=== PATIENT | female | born 1970 | race Caucasian/White ===

== ENCOUNTER 2021-09-07 20:25 | Emergency (ER) | payer OTHER ==
[~2021-09-07] VITALS: Ht 165.1 cm; Wt 85.3 kg
[~2021-09-07 20:25] MED LIST: CEPH-568 PO; NORCO5 PO
[2021-09-07 20:28] VITALS: BP_SYST 133
--- NOTE | 2021-09-07 20:38 | NUR ---
PT LYING IN BED, AOX4. REPORTS RAPID HEART RATE ON AND OFF X1 WEEK WITH INTERMITTENT CHEST PAIN. PT STATES THAT SHE WAS FEARFUL OF WHAT WAS HAPPENING AND DECIDED TO COME TO THE ED. PT REPORTS HX HIGH CHOLESTEROL, DENIES ANY OTHER HX OR HOME MEDICATIONS. HR 150-160 PER ED MONITOR.
--- NOTE | 2021-09-07 20:38 | NUR ---
Placed in room 01 . Placed on adult literacy instructor, blood pressure machine and pulse oximeter. To gown for exam. Side rails up.
--- NOTE | 2021-09-07 20:39 | NUR ---
DR. SMALL AT BEDSIDE FOR EVALUATION
[2021-09-07] MEDS ORDERED: ADENOSINE 6MG/2ML VIAL ONE (20:44)
[2021-09-07] MEDS ORDERED: NACL 0.9% 1,000 ML IV ONE ×2 (20:45→23:00)
[2021-09-07] MEDS ORDERED: ADENOSINE 6MG/2ML VIAL IVP ONE (20:45)
--- NOTE | 2021-09-07 20:45 | NUR ---
VERBAL ORDERS PER MD GEOVANNY TO APPLY 2L O2 BY NC. VERBAL ORDERS 1 L NS BOLUS PER MD GEOVANNY.
[2021-09-07] MEDS ORDERED: METOPROLOL TARTRATE 25 MG TABLET PO ONE ×2 (21:00→21:15)
[2021-09-07] MEDS ORDERED: ASPIRIN 325 MG TABLET PO ONE (21:00)
[2021-09-07 21:12] LABS: BASOPHILS # (AUTO) 0.2 K/uL (0.0-0.2); BASOPHILS % (AUTO) 1.2 % (0.0-2.0); EOSINOPHILS # (AUTO) 0.3 K/uL (0.0-0.4); EOSINOPHILS % (AUTO) 2.1 % (0.0-4.0); HEMATOCRIT 45.4 % (36-48); LYMPHOCYTES # (AUTO) 3.4 K/uL (1.0-5.5); LYMPHOCYTES % (AUTO) 24.4 % (20.5-51.5); MEAN CORPUSCULAR HEMOGLOBIN 28 pg (27-31); MEAN CORPUSCULAR HGB CONC 33 % (32-36); MEAN CORPUSCULAR VOLUME 86 fL (79.0-98.0); MONOCYTES # (AUTO) 0.9 K/uL (0.0-1.0); MONOCYTES % (AUTO) 6.2 % (1.7-9.3); NEUTROPHILS # (AUTO) 9.2 K/uL (1.8-7.7); NEUTROPHILS % (AUTO) 66.1 % (40.0-70.0); PLATELET COUNT (AUTO) 439 K/uL (130-430); RED BLOOD CELL COUNT(AUTO) 5.29 MIL/uL (4.2-6.2); RED CELL DISTRIBUTION WIDTH 14.1 % (9.0-15.0); WHITE BLOOD COUNT (AUTO) 13.9 K/uL (4.8-10.8)
[2021-09-07 21:28] LABS: CALCIUM 9.5 mg/dL (8.4-11.0); CREATININE 0.89 mg/dL (0.55-1.30); POTASSIUM 3.3 mmol/L (3.5-5.1)
--- NOTE | 2021-09-07 21:43 | NUR ---
RN VERIFIED LOPRESSOR ORDERS WITH . MD GAVE VERBAL ORDERS TO ONLY GIVE 25MG LOPRESSOR.
[2021-09-07 21:44] LABS: THYROID STIMULATING HORMONE 3.84 uIu/mL (0.36-3.74); TOTAL BILIRUBIN 0.2 mg/dL (0.0-1.0)
[2021-09-07 22:19] LABS: INR 0.9 (0.8-1.2); PROTHROMBIN TIME 9.5 SECS (9.5-12.5)
--- NOTE | 2021-09-07 22:24 | NUR ---
RN UPDATED PT AND FAMILY MEMBER ON PLAN OF CARE.
[2021-09-07 23:07] LABS: FREE T4 (FREE THYROXINE) 1.2 ng/dl (0.8-1.5)
--- NOTE | 2021-09-07 23:10 | NUR ---
URINE SPECIMEN SENT TO LAB BY RN.
[2021-09-07 23:13] LABS: CKMB RELATIVE INDEX 0.1 (0.0-2.9); CREATINE KINASE MB 15.5 ng/mL (0-3.6)
[2021-09-08 00:07] LABS: BILIRUBIN,URINE NEGATIVE (NEGATIVE); BLOOD, URINE 2+ (NEGATIVE); CLARITY/URINE CLEAR (CLEAR); COLOR,URINE YELLOW (YELLOW); GLUCOSE,URINE NEGATIVE (NEGATIVE); KETONES,URINE NEGATIVE (NEGATIVE); LEUKOCYTE ESTERASE ,URINE NEGATIVE (NEGATIVE); NITRITE, URINE NEGATIVE (NEGATIVE); PROTEIN URINE NEGATIVE (NEGATIVE); UROBILINOGEN,URINE 0.2 (0.2-1.0)
[2021-09-08 00:34] LABS: BACTERIA,URINE FEW /HPF (None Seen); WBC,URINE 0-3 /HPF (0-3)
--- NOTE | 2021-09-08 01:19 | NUR ---
Patient to be transferred to [facility]. Is being transferred due to higher level of care. Receiving facility has accepting physician and available space. ER physician has signed transfer form. Patient or responsible libertarian has agreed to transfer and signed form. Patient belongings inventoried and will be sent with patient. Copy of nursing notes, lab reports, EKG, Physicians Orders and X-rays to be sent with patient. Report called to YESICA BANKS at receiving facility. Receiving physician is MD BELKIS. [facility] service has been called for transfer. ETA is [id number].
[2021-09-08 01:22] VITALS: BP_SYST 123
== END 2021-09-08 01:19 | disposition short-term general hospital (02) ==
LOC: SED 20:25
DX: I47.1 Supraventricular tachycardia (principal); R07.89 Other chest pain; R74.01 Elevation of levels of liver transaminase levels; M62.82 Rhabdomyolysis; Z79.899 Other long term (current) drug therapy; Z20.822 Contact with and (suspected) exposure to COVID-19
CPT/HCPCS: 36415; 71045; 80053; 81000; 82550; 82553; 83880; 84439; 84443; 84479; 84484; 85025; 85379; 85610; 85730; 87426; 93005; 96361; 96374; 99291; J0153; J7030